=== PATIENT | male | born 1960 | race Two or more races ===

== ENCOUNTER 2020-12-18 21:46 | Emergency (ER) | payer OTHER ==
[~2020-12-18] VITALS: Ht 172.7 cm; Wt 68.0 kg
[~2020-12-18 21:46] MED LIST: AVAPRO300 MG PO
== END 2020-12-19 03:18 | disposition home or self-care (01) ==
LOC: ER 21:46
DX: S61.210A Laceration without foreign body of right index finger without damage to nail, initial encounter (principal); W26.8XXA Contact with other sharp object(s), not elsewhere classified, initial encounter; Y92.019 Unspecified place in single-family (private) house as the place of occurrence of the external cause

== ENCOUNTER 2023-03-02 08:41 | Outpatient (CLI) | payer OTHER | END 2023-03-02 08:56 | disposition home or self-care (01) | LOC: SONOGRAMA 08:41 | PROVIDERS: ATTEND Specialist/Technologist, Other Nephrology | DX: R10.9 Unspecified abdominal pain (principal); N18.30 Chronic kidney disease, stage 3 unspecified; R31.9 Hematuria, unspecified ==

== ENCOUNTER 2024-08-13 08:46 | Outpatient (CLI) | payer OTHER | END 2024-08-13 08:48 | disposition home or self-care (01) | LOC: SONOGRAMA 08:46 | DX: R10.13 Epigastric pain (principal) ==

== ENCOUNTER 2024-10-22 15:37 | Emergency (ER) | payer OTHER ==
[~2024-10-22] VITALS: Ht 172.7 cm; Wt 77.1 kg
[2024-10-22] MEDS ORDERED: LIDOCAINE HCL 1% 10ML VIAL ONE (16:56)
[2024-10-22] MEDS ORDERED: CEFTRIAXONE SODIUM 1,000 MG VIAL IM ONE (17:00)
[2024-10-22] MEDS ORDERED: CEFTRIAXONE SODIUM 1,000 MG VIAL ONE (17:25)
[2024-10-22] MEDS ORDERED: DIPHTH,PERTUSS(ACELL),TET VAC 0.5 ML SYRINGE IM ONE (17:25)
[2024-10-22] MEDS ORDERED: DUI500 PO (17:41)
[2024-10-22] MEDS ORDERED: LIDOCAINE HCL 1% 10ML VIAL PERCUT ONE (17:45)
[2024-10-22] MEDS ORDERED: TETANUS & DIPHTHERIA TOX,ADULT 0.5 ML VIAL IM ONE (17:45)
== END 2024-10-22 17:54 | disposition home or self-care (01) ==
LOC: ER 15:37
DX: S61.219A Laceration without foreign body of unspecified finger without damage to nail, initial encounter (principal); W45.8XXA Other foreign body or object entering through skin, initial encounter; Y93.89 Activity, other specified; Y92.89 Other specified places as the place of occurrence of the external cause; Y99.8 Other external cause status; I10 Essential (primary) hypertension
CPT/HCPCS: 12001; 90471; 90714; 96372; 99282; J0696; J1670; J3490